=== PATIENT | male | born 1940 | race Caucasian/White ===

== ENCOUNTER 2018-06-28 09:06 | Emergency (ER) | payer SELFPAY ==
[~2018-06-28] VITALS: Ht 167.6 cm; Wt 65.9 kg
[2018-06-28 09:18] LABS: GLUCOSE,POINT OF CARE 260 MG/DL (70-110)
[2018-06-28] MEDS ORDERED: IBUPROFEN 600 MG TABLET PO ONE ×2 (10:15→11:00)
[2018-06-28] MEDS ORDERED: METHOCARBAMOL 500 MG TABLET PO ONE (11:00)
[2018-06-28 12:21] VITALS: BP 144/83
== END 2018-06-28 12:22 | disposition home or self-care (01) ==
LOC: EMS 09:10
DX: S40.011A Contusion of right shoulder, initial encounter (principal); E11.9 Type 2 diabetes mellitus without complications; Z88.0 Allergy status to penicillin; V49.3XXA Car occupant (driver) (passenger) injured in unspecified nontraffic accident, initial encounter; Y93.89 Activity, other specified; Y92.89 Other specified places as the place of occurrence of the external cause; Y99.8 Other external cause status
CPT/HCPCS: 72125; 99284